=== PATIENT | female | born 1975 | race Caucasian/White ===

== ENCOUNTER → 2023-02-20 | Outpatient (CLI) | payer OTHER ==
[2023-02-20 14:42] LABS: BASO # 0.1 10*3/uL (0.0-0.1); BASO % 1.1 % (0.0-1.0); EOS # 0.1 10*3/uL (0.0-0.4); EOS % 0.9 % (1.0-4.0); HEMATOCRIT 37.5 % (37.0-47.0); LYMPH # 2.2 10*3/uL (1.3-4.4); LYMPH % 40.2 % (27.0-41.0); MEAN CELL VOLUME 89.7 fl (81.0-99.0); MEAN CORPUSCULAR HGB 29.2 pg (27.0-31.0); MEAN CORPUSCULAR HGB CONC 32.5 g/dl (33.0-37.0); MEAN PLATELET VOLUME 9.3 fl (9.6-12.3); MONO # 0.4 10*3/uL (0.1-1.0); MONO % 7.3 % (3.0-9.0); NEUT # 2.8 10*3/uL (2.3-7.9); NEUT % 50.3 % (47.0-73.0); PLATELET COUNT AUTOMATED 251 10*3/uL (130-400); RED BLOOD COUNT 4.18 10*6/uL (4.10-5.10); RED CELL DISTRI WIDTH 13.8 % (0-14.5); WHITE BLOOD COUNT 5.5 10*3/uL (4.8-10.8)
[2023-02-20 15:12] LABS: ALKALINE PHOSPHATASE 74 U/L (46-116); BUN 9 mg/dl (9-23); CHLORIDE 107 mmol/L (98-107); CHOLESTEROL 180 mg/dL (<200); LDL CHOLESTEROL 108 mg/dL (9-159); POTASSIUM 3.6 mmol/L (3.4-5.1); SGPT/ALT < 7 U/L (10-49); TOTAL PROTEIN 7.3 gm/dL (6.0-8.0); TRIGLYCERIDES 89 mg/dl (<150)
[2023-02-21 06:08] LABS: HBSAG Negative (Negative); HEP B CORE AB, IGM Negative (Negative)
[2023-02-21 18:06] LABS: HEPATITIS C QNT HCV Not Detected IU/mL (.)
[2023-02-24 00:06] LABS: HEPATITIS C ANTIBODY Reactive (Non Reactive)
== END | disposition home or self-care (01) ==
LOC: LAB 13:50
PROVIDERS: ATTEND Registered Nurse
DX: F41.9 Anxiety disorder, unspecified (principal); F11.10 Opioid abuse, uncomplicated